=== PATIENT | female | born 1985 | race Caucasian/White ===

== ENCOUNTER 2024-05-26 01:51 | Outpatient (CLI) | payer OTHER, SELFPAY ==
--- NOTE | 2024-05-26 | DI.NM_ITS ---
Exam(s) NM I123 THYROID UP SC DAY 2 CLINICAL HISTORY: H/o growing rt thyroid nodule, E04.1; low to low normal TSH;. COMPARISON: NM NM I123 THYROID UP SC DAY 1 from 05/25/2024 TECHNIQUE: Capsule Dose: 353 uCi I-123 FINDINGS: No evidence of hot or cold nodules. No pyramidal lobe. No ectopic thyroid tissue. IMPRESSION: No evidence of hot or cold nodule. DATA REPOSITORY:
== END 2024-05-26 02:11 ==
PROVIDERS: PCP Nurse Practitioner; Visit Provider Internal Medicine
DX: E04.1 Nontoxic single thyroid nodule (principal)
CPT/HCPCS: 78014; A9512